=== PATIENT | male | born 1970 | race Caucasian/White ===

== ENCOUNTER → 2018-06-11 13:27 | Outpatient (CLI) | payer BC, SELFPAY ==
[2018-06-11 14:04] LABS: Basophils # 0.1 K/mm3 (0-0.2); Basophils % 0.9 % (0.1-2.0); Eosinophils # 0.3 K/mm3 (0.0-0.4); Eosinophils % 4.2 % (0.1-12.0); Hematocrit 47.4 % (42.0-52.0); Hemoglobin 15.8 g/dL (14.1-18.0); Lymphocytes # 1.8 K/mm3 (0.7-4.5); Mean Corpuscular HGB Conc 33.4 g/dL (31.8-35.4); Mean Corpuscular Hemoglobin 29.2 pg (27.0-31.2); Mean Corpuscular Volume 87.3 fl (80-94); Mean Platelet Volume 7.2 fl (7.4-10.4); Monocytes # 0.5 K/mm3 (0.1-1.0); Monocytes % 6.9 % (1.7-9.3); Neutrophils # 4.9 K/mm3 (1.8-7.8); Neutrophils % 64.9 % (37.0-80.0); Platelet Count 299 K/mm3 (142-424); Red Blood Count 5.42 M/mm3 (4.60-6.20); Red Cell Distribution Width 13.2 % (11.5-17.5); White Blood Count 7.6 K/mm3 (4.8-10.8)
[2018-06-11 16:46] LABS: Alanine Aminotransferase 71 U/L (12-78); Albumin Level 4.7 gm/dL (3.4-5.0); Albumin/Globulin Ratio 1.5 (1.1-1.8); Alkaline Phosphatase 86 U/L (46-116); Aspartate Amino Transferase 38 U/L (15-37); Blood Urea Nitrogen 17 mg/dL (7-18); Calcium 9.1 mg/dL (8.5-10.1); Carbon Dioxide 27 mmol/L (21.0-32.0); Chloride 101 mmol/L (98-107); Chol/HDL Ratio 7.6 (1-3.5); Cholesterol 348 mg/dL (140-200); Estimated Glomerular Filt Rate 79 ml/min (>60); GFR (African American) 96 ML/MIN (>60); Globulin 3.1 gm/dl (1.3-3.2); Glucose 91 mg/dL (74-106); HDL Cholesterol 46 mg/dL (27-67); LDL Cholesterol 261 mg/dL (0-130); Sodium 140 mmol/L (136-145); Thyroid Stimulating Hormone 1.43 uIU/ml (0.358-3.740); Total Protein,Serum 7.8 gm/dL (6.4-8.2); Triglycerides 203 mg/dL (30-200); VLDL Cholesterol 41 mg/dL (0-40)
[2018-06-12 09:06] LABS: Vitamin B12 703 pg/mL (232-1245)
== END ==
PROVIDERS: Visit Provider Internal Medicine Adolescent Medicine
DX: E78.5 Hyperlipidemia, unspecified (principal); R53.83 Other fatigue; R53.81 Other malaise
CPT/HCPCS: 36415; 80053; 80061; 82607; 82652; 84443; 85025

== ENCOUNTER → 2019-09-05 16:05 | Outpatient (CLI) | payer BC, SELFPAY ==
--- NOTE | 2019-09-05 16:09 | XR_ITS ---
PROCEDURE: XR CHEST 2V CLINICAL HISTORY: HISTOPLASMOSIS COMPARISON: CXR CHEST(2 VIEWS-NOT PORTABLE) from 03/06/2015 CXR CHEST(2 VIEWS-NOT PORTABLE) from 08/06/2015 FINDINGS: The cardiomediastinal silhouette and pulmonary vascularity are within normal limits. The lungs are clear without infiltrates, suspicious nodules, or pleural effusions. There is mild lower thoracic curvature convex left IMPRESSION: No acute findings. Dictated by: Marlo Pierre MD 09/05/2019 17:27 Electronically signed by Marlo Pierre MD in [place] 09/05/2019 17:27
== END ==
PROVIDERS: PCP Internal Medicine Adolescent Medicine; Visit Provider Internal Medicine Adolescent Medicine
DX: B39.9 Histoplasmosis, unspecified (principal)
CPT/HCPCS: 71046

== ENCOUNTER 2020-11-28 09:52 | Emergency (ER) | payer BC, SELFPAY ==
[2020-11-28 10:59] VITALS: PULSE 87; RESP 20; TEMP 37.1; O2SAT 97; BMI 32.1
--- NOTE | 2020-11-28 11:46 | HMH.EDUTC ---
[facility] Disposition Clinical Impression: Exposure to COVID-19 virus Acute bronchitis Qualifiers: Bronchitis organism: unspecified organism Qualified Code(s): J20.9 - Acute bronchitis, unspecified Disposition: Home, Self-Care Condition on Discharge: Good Instructions: Acute Bronchitis, DI for Acute Bronchitis, DI for COVID-19 (Suspected or Confirmed ), Preventing the Spread of Coronavirus Discharge Instructions Additional Instructions: Drink plenty of fluids. Take tylenol or ibuprofen for pain or fever. Take the medications as directed. Follow up with your regular doctor. GO TO THE ER FOR ANY WORSENING SYMPTOMS Quarantine until you know the results of your covid-19 test. If it is positive, the health department should call you and give you further instructions about your length of Quarantine and other things. Notify your school or workplace of your results and follow their instructions regarding return to work/school. The cough medication (promethazine dm) will make you drowsy, so don't drive or operate heavy machinery after taking it. Prescriptions: Albuterol Sulfate [Albuterol Sulfate Hfa] 2 puffs IH Q6HP PRN 30 Days #1 each PRN Reason: Shortness Of Breath Transmission Status: Received by [facility] Promethazine/Dextromethorphan [Promethazine-Dm Syrup] 5 ml PO Q6HP PRN #240 ml PRN Reason: Cough Transmission Status: Received by [facility] guaiFENesin [Mucinex 600mg tablet] 1 - 2 tab PO BIDP PRN #30 tab PRN Reason: Congestion Transmission Status: Received by [facility] Azithromycin [Z-Kristofer 250mg Tab*] 250 mg PO UD DOSE PK #6 tab Transmission Status: Received by [facility] Referrals: Americo Cui MD [Primary Care Provider] - Forms: Work/School Release Time of Disposition: 12:38 Medical Decision Making - Medical Records Medical records reviewed: No: I reviewed the patient's medical records. - Pedrito Inquiry Pt receiving controlled substance: No Vital Signs: 11/28/20 10:59 11/28/20 12:43 Temperature 98.7 F 0 F L Temperature Source Oral Pulse Rate 0 L Pulse Rate [Left] 87 Respiratory Rate 20 0 L Blood Pressure 0/0 L 02 Sat by Pulse Oximetry 97 - Radiology Data #1 Image(s): Chest Image Reviewed: Yes I reviewed the patient's radiology image, Yes I have reviewed radiologist's interpretation Preliminary Findings: Normal/NAD, No Infiltrates Seen PROCEDURE: XR CHEST 2V CLINICAL HISTORY: cough, congestion COMPARISON: CR CXR CHEST(2 VIEWS-NOT PORTABLE) from 03/06/2015 CR CXR CHEST(2 VIEWS-NOT PORTABLE) from 08/06/2015 DX XR CHEST 2V from 09/05/2019 FINDINGS: The cardiomediastinal silhouette and pulmonary vascularity are within normal limits. The lungs are clear without infiltrates, suspicious nodules, or pleural effusions. No acute bony abnormalities. IMPRESSION: No acute findings. Dictated by: Marlo Pierre MD 11/28/2020 12:34 Marlo Pierre MD in [place] 11/28/2020 12:34 [facility] HPI - General Stated complaint: cough, weakness, sore throat Time Seen by Provider: 11/28/20 11:47 Mode of Arrival: Ambulatory Source of Information: Patient Limitations: No Limitations Description of Symptoms (Recalled from Triage Doc. by RN): COUGH, BODY ACHES AND GALAVIZ HEENT Symptoms (Recalled from RN notes): Yes (GALAVIZ) Resp Symptoms (Recalled from RN notes): Yes (COUGH) Skin Symptoms (Recalled from RN notes): No MS Symptoms (Recalled from RN notes): No Functional Status (Recalled from RN notes): BODY ACHES - History of Present Illness Provider Complaint: He states that for the past 2 days he has had a very frequent dry cough, pleuritic chest pain, nausea, and sore throat. He has not been vaccinated against covid-19. - Related Data Home Medications Medication Instructions Recorded Confirmed diclofenac sodium 75 mg 75 mg PO BID 04/07/18 12/07/18 tablet,delayed release esomeprazole magnesium 40 mg 40 mg PO DAILY 04/07/18
--- NOTE | 2020-11-28 11:53 | XR_ITS ---
PROCEDURE: XR CHEST 2V CLINICAL HISTORY: cough, congestion COMPARISON: CR CXR CHEST(2 VIEWS-NOT PORTABLE) from 03/06/2015 CR CXR CHEST(2 VIEWS-NOT PORTABLE) from 08/06/2015 DX XR CHEST 2V from 09/05/2019 FINDINGS: The cardiomediastinal silhouette and pulmonary vascularity are within normal limits. The lungs are clear without infiltrates, suspicious nodules, or pleural effusions. No acute bony abnormalities. IMPRESSION: No acute findings. Dictated by: Marlo Pierre MD 11/28/2020 12:34 Marlo Pierre MD in [place] 11/28/2020 12:34
[2020-11-28 12:43] VITALS: BP 0/0; PULSE 0; RESP 0; TEMP -17.7; TEMP 0
--- NOTE | 2020-11-29 09:21 | PC.NURSE ---
notified pt of positive covid swab results
== END 2020-11-28 12:44 | disposition home or self-care (01) ==
PROVIDERS: Emergency Provider Nurse Practitioner Family; PCP Internal Medicine Adolescent Medicine
DX: Z20.822 Contact with and (suspected) exposure to COVID-19 (principal); J20.9 Acute bronchitis, unspecified
CPT/HCPCS: 71046; 99202; G0463; U0003

== ENCOUNTER → 2020-12-28 17:15 | Outpatient (CLI) | payer BC, SELFPAY ==
--- NOTE | 2020-12-28 17:20 | XR_ITS ---
PROCEDURE INFORMATION: Exam: XR Chest Exam date and time: 12/28/2020 5:20 PM Age: 50 years old Clinical indication: Cough; Additional info: Bronchopneumonia TECHNIQUE: Imaging protocol: XR of the chest. Views: 2 views. COMPARISON: CR XR CHEST 2V 11/28/2020 11:51 AM FINDINGS: Lungs: Hypoventilation/low lung volumes. Bilateral central peribronchial thickening. Mild bilateral infrahilar bronchovascular crowding. No focal consolidation. Pleural spaces: Unremarkable. No significant pleural effusion. No pneumothorax. Heart/Mediastinum: The cardiac silhouette is normal size. Small pericardial fat pad suggested at the left cardiophrenic angle. Bones/joints: There are spinal degenerative changes, with multilevel disc narrrowing and spondylosis. No acute appearing fracture or significant listhesis Soft tissues: No acute findings in the soft tissues. IMPRESSION: 1. Central peribronchial thickening, mild bilateral infrahilar bronchovascular crowding, suggesting bronchitis and subsegmental atelectasis. 2. No focal consolidation.
[2020-12-28 17:41] LABS: Basophils # 0.1 K/mm3 (0-0.2); Basophils % 1.1 % (0.1-2.0); Eosinophils # 0.4 K/mm3 (0.0-0.4); Eosinophils % 4.7 % (0.1-12.0); Hematocrit 44.6 % (42.0-52.0); Hemoglobin 15.6 g/dL (14.1-18.0); Lymphocytes % 25.6 % (10-50); Mean Corpuscular HGB Conc 34.9 g/dL (31.8-35.4); Mean Corpuscular Volume 88.7 fl (80-94); Mean Platelet Volume 7.9 fl (7.4-10.4); Monocytes # 0.6 K/mm3 (0.1-1.0); Monocytes % 7.6 % (1.7-9.3); Neutrophils # 4.8 K/mm3 (1.8-7.8); Neutrophils % 61.1 % (37.0-80.0); Platelet Count 307 K/mm3 (142-424); Red Blood Count 5.04 M/mm3 (4.60-6.20); Red Cell Distribution Width 13.7 % (11.5-17.5); White Blood Count 7.8 K/mm3 (4.8-10.8)
[2020-12-28 18:17] LABS: Chloride 103 mmol/L (98-107); Potassium 4.3 mmoL/L (3.5-5.1); Sodium 141 mmol/L (136-145)
[2020-12-28 18:20] LABS: Anion Gap 13.3 mEq/L (5-15); Blood Urea Nitrogen 12 mg/dl (9-20); Carbon Dioxide 29 mmol/L (22.0-30.0); Estimated Glomerular Filt Rate 89 ml/min (>60); GFR (African American) 108 ML/MIN (>60)
[2020-12-28 18:21] LABS: Calcium 8.8 mg/dl (8.4-10.2); Glucose 168 mg/dl (74-100)
== END ==
PROVIDERS: Visit Provider Internal Medicine Adolescent Medicine
DX: J18.0 Bronchopneumonia, unspecified organism (principal)
CPT/HCPCS: 36415; 71046; 80048; 85025

== ENCOUNTER → 2021-02-28 17:01 | Outpatient (CLI) | payer BC, SELFPAY ==
[2021-02-28 18:22] LABS: Basophils # 0.1 K/mm3 (0-0.2); Basophils % 1.8 % (0.1-2.0); Eosinophils # 0.4 K/mm3 (0.0-0.4); Eosinophils % 4.9 % (0.1-12.0); Hematocrit 42.9 % (42.0-52.0); Lymphocytes # 2.2 K/mm3 (0.7-4.5); Lymphocytes % 27.3 % (10-50); Mean Corpuscular HGB Conc 34.9 g/dL (31.8-35.4); Mean Corpuscular Hemoglobin 30.5 pg (27.0-31.2); Mean Corpuscular Volume 87.3 fl (80-94); Mean Platelet Volume 8.2 fl (7.4-10.4); Monocytes # 0.7 K/mm3 (0.1-1.0); Monocytes % 9.2 % (1.7-9.3); Neutrophils # 4.5 K/mm3 (1.8-7.8); Neutrophils % 56.7 % (37.0-80.0); Platelet Count 317 K/mm3 (142-424); Red Blood Count 4.91 M/mm3 (4.60-6.20); Red Cell Distribution Width 13.8 % (11.5-17.5); White Blood Count 7.9 K/mm3 (4.8-10.8)
[2021-02-28 18:35] LABS: Hemoglobin A1C 5.6 % (4.0-6.0)
[2021-02-28 19:04] LABS: Alanine Aminotransferase 348 U/L (12-78); Albumin Level 4.6 g/dl (3.5-5.0); Albumin/Globulin Ratio 1.8 (1.1-1.8); Alkaline Phosphatase 92 U/L (38-126); Anion Gap 10.1 mEq/L (5-15); Aspartate Amino Transferase 251 U/L (17-59); Bilirubin,Total 0.7 mg/dl (0.2-1.3); Blood Urea Nitrogen 15 mg/dl (9-20); Calcium 9.3 mg/dl (8.4-10.2); Carbon Dioxide 32 mmol/L (22.0-30.0); Chloride 100 mmol/L (98-107); Chol/HDL Ratio 6.3 (1-3.5); Cholesterol 304 mg/dl (140-200); Estimated Glomerular Filt Rate 89 ml/min (>60); GFR (African American) 107 ML/MIN (>60); Globulin 2.5 g/dL (1.3-3.2); Glucose 81 mg/dl (74-100); HDL Cholesterol 48 mg/dl (40-60); Potassium 4.1 mmoL/L (3.5-5.1); Sodium 138 mmol/L (136-145); Total Protein,Serum 7.1 g/dl (6.3-8.2); Triglycerides 311 mg/dl (30-150); VLDL Cholesterol 62 mg/dL (0-40)
[2021-02-28 19:15] LABS: Direct LDL Cholesterol 203.15 mg/dL (100-129)
== END ==
PROVIDERS: Visit Provider Internal Medicine Adolescent Medicine
DX: R06.00 Dyspnea, unspecified (principal); E78.5 Hyperlipidemia, unspecified
CPT/HCPCS: 36415; 80053; 80061; 83036; 85025

== ENCOUNTER → 2021-03-07 07:17 | Outpatient (CLI) | payer BC, SELFPAY ==
--- NOTE | 2021-03-07 | CA_ITS ---
APPROVED REPORT Exam: Exercise Treadmill Technologist: Leslie Hinojosa, Ht: 5 ft 10 in Wt: 235 lbs BSA: 2.24 m2 HR: 72 bpm BP: 130/76 mmHg Rhythm: NSR, RIGHTWARD AXIS, ST-T ABNS INFERIORLY Medical History Medical History: Hyperlipidemia Medications: Nexium,,,,, VeLAFAXINE,,,,, Allergies: PCN, PREDNISONE Cardiac Risk Factors: Hyperlipidemia Stress Test Details Test: Prem, Exercise stress testing was performed using a Prem protocol. HR Resting HR: 79 bpm Max Heart Rate (APMHR): 168.535744 bpm Max HR Achieved: 169 bpm Target HR (85% APMHR): 142.434581 bpm % of APMHR: 100.60 Recovery HR: 98 bpm BP Resting BP: 130/76 mmHg Max BP: 178/92 mmHg Recovery BP: 137.0/82.0 mmHg ECG Resting ECG: NSR, RIGHTWARD AXIS, ST-T ABNS INFERIORLY Clinical Exercise duration: 09:00 min Highest Stage Achieved: Exercise capacity: 10.1 METs Stress ECG Conclusion MAX HR: 169. % OF PM: 101%. MAX BP 178/92. METS 10.1. TEST STOPPED DUE TO SOA, FATIGUE. NO CP. RARE PAC. 0.5-1MM OF HORIZONTAL ST DEPRSSION IN LEAD II 0.5MM UPSLOPING ST DEPRESSION IN V6. EXAGGERATION OF BASELINE ABNS IN LEADS III, AVF. EQUIVOCAL EKG CHANGES. GXT ONLY (NO IMAGING) Test Summary RECOVERY 03:00 0.0 0.0 106 . 163/ 82 . . REST . . . . . . . Sitting REST 04:11 0.0 0.0 79 . 130/ 76 . . Stage 1 01:00 10.0 1.7 105 . . . . Stage 1 02:00 10.0 1.7 117 . . . . Stage 1 03:00 10.0 1.7 117 . 152/ 90 . . Stage 2 01:00 12.0 2.5 126 . . . . Stage 2 02:00 12.0 2.5 129 . . . . Stage 2 03:00 12.0 2.5 132 . 178/ 92 . . Stage 3 01:00 14.0 3.4 151 . . . . Stage 3 02:00 14.0 3.4 160 . . . . Stage 3 03:00 14.0 3.4 169 . . . Stop exercise at 09:00 RECOVERY 01:00 0.0 0.0 139 . . . . RECOVERY 02:00 0.0 0.0 115 . 178/ 91 . . RECOVERY 03:00 0.0 0.0 106 . 163/ 82 . . RECOVERY 04:00 0.0 0.0 98 . 163/ 82 . . RECOVERY 05:00 0.0 0.0 99 . 137/ 82 . . RECOVERY 05:16 0.0 0.0 99 . 137/ 82 . . Electronically signed by : Americo Cui MD 03/09/2021 08:41:10
== END ==
PROVIDERS: PCP Internal Medicine Adolescent Medicine; Visit Provider Internal Medicine Adolescent Medicine
DX: R06.09 Other forms of dyspnea (principal)
CPT/HCPCS: 93017

== ENCOUNTER → 2021-03-08 07:46 | Outpatient (CLI) | payer BC, SELFPAY ==
--- NOTE | 2021-03-08 07:49 | US_ITS ---
PROCEDURE: US LIVER CLINICAL INDICATION: LIVER ENZYME ELEVATION COMPARISON: No exams were available for comparison FINDINGS: PANCREAS: There is poor visualization of the pancreas. LIVER: Diffuse increased echogenicity of the liver with poor through transmission of sound consistent with hepatic steatosis. No focal liver lesion demonstrated. There is appropriate direction of blood flow within non dilated portal vein. RIGHT KIDNEY: Unremarkable. Normal size and echogenicity. No hydronephrosis GALLBLADDER: No gallstones, gallbladder wall thickening, pericholecystic fluid, or biliary dilatation. IMPRESSION: Fatty liver. Poor visualization of the pancreas Dictated by: Marlo Pierre MD 03/08/2021 16:49 Marlo Pierre MD in [place] 03/08/2021 16:49
== END ==
LOC: RAD 07:47
PROVIDERS: PCP Internal Medicine Adolescent Medicine; Visit Provider Internal Medicine Adolescent Medicine
DX: R74.8 Abnormal levels of other serum enzymes (principal)
CPT/HCPCS: 76705

== ENCOUNTER → 2021-04-13 10:43 | Outpatient (CLI) | payer BC, SELFPAY | PROVIDERS: Visit Provider Surgery | DX: Z01.812 Encounter for preprocedural laboratory examination (principal); Z11.52 Encounter for screening for COVID-19; Z13.810 Encounter for screening for upper gastrointestinal disorder; Z12.11 Encounter for screening for malignant neoplasm of colon | CPT/HCPCS: C9803; U0003; U0005 ==

== ENCOUNTER 2021-04-16 07:29 | Day surgery (SDC) | payer BC, SELFPAY ==
[2021-04-11 12:36] VITALS: BMI 32.3
[2021-04-16] VITALS (7 sets, daily range): BP systolic 112–124; BP diastolic 69–79; PULSE 65–84; RESP 16–20; TEMP 36.2; O2SAT 92–99
--- NOTE | 2021-04-16 07:59 | HMH.ANESCL ---
[facility] Anesthesia Checklist - Patient Identification Patient Identification: Arm Band - Structural Data Admitted From: Home Planned Operative Procedure/s: EGD/ Colon Consent for Planned Operative Procedure(s) Verified: Yes - NPO Status Verified Time NPO: 00:00 - Additional verifications Anesthesia Reactions: No - Airway Assessment C-Spine Mobility Assessed: Yes TMJ Mobility Assessed: Yes Dentition: Good Dentition - Neurological Assessment Level of Consciousness: Awake Hx Seizures: No Numbness or tingling in extremities: No - Anesthesia Plan Anesthesia Risk discussed: Yes Anesthesia Plan: Verified ASA Class: II Anesthesia Type: MAC [facility] History I have reviewed the patient's past medical history: Yes Medical History: Reports:: Anxiety Denies:: Cancer, Diabetes Mellitus Type 1, Diabetes Mellitus Type 2, Internal Pacemaker, Lung Disease, MRSA, Seizures *Have you ever received a pneumonia vaccine?: No *Have you received a flu vaccine this season?: No Anesthesia experience/problems:: None Laterality Cases: Bilateral: Myringotomy (Ear Tubes) Other Surgeries: Yes: Colonoscopy, EGD. No: Pacemaker Amputation: No Fractures: No - *Social History Last grade of school completed: High school graduate Smoking Status: Never smoker Alcohol Intake: current Alcohol Intake Frequency:: a few times a month Substance Use Type: denies use *Occupational Status:: employed Housing: house *Travel in the last 8 weeks: None - Psychiatric History Pschychiatric History:: Reports:: Anxiety Family Hx:: No significant family history
--- NOTE | 2021-04-16 08:44 | HMH.SCOPE ---
- Procedure: Date: 04/16/21 Patient Date of :: 1970 Procedure Performed:: Esophagogastroduodenoscopy with biopsy Colonoscopy with polypectomy by means other than snare Indications:: Intestinal metaplasia of gastric mucosa History of colon polyps Performing Provider:: Onel Kidd MD Referring Provider:: . Sedation:: Monitored anesthesia care Procedure:: After informed consent was obtained the patient was taken to the endoscopy suite. Sedation ensued after the patient was transferred to the left lateral decubitus position. Pulse, blood pressure, and oxygen saturation were monitored throughout the procedure. The endoscope was advanced beyond the duodenal bulb. Retroflexion within the gastric lumen was accomplished. The gastroscope was carefully removed. Digital rectal exam revealed no significant abnormality. The colonoscope was placed in position. The entire colon was evaluated. The colonoscope was carefully removed and the patient was transferred to recovery in stable condition. Please see findings and specimens below for detail. Findings:: Minimal inflammatory changes throughout gastric lumen Hemorrhoidal cushions/tags Bowel preparation moderate Fairly severe lack of relaxation Small polyp at 65 cm Specimens:: Antral biopsy Small colon polyp at 65 cm Recommendations:: Continue proton pump inhibition Timing of repeat colonoscopy is pending pathology but will likely be around 3 years secondary to limitations in visualization and history of polyps. Complications:: No immediate Estimated blood obtained (mL): 1
== END 2021-04-16 09:25 | disposition home or self-care (01) ==
LOC: OUTP 07:30
PROVIDERS: PCP Internal Medicine Adolescent Medicine; Visit Provider Surgery
PROC: 0DJD8ZZ Inspection of Lower Intestinal Tract, Via Natural or Artificial Opening Endoscopic (ICD-10-PCS; CPT 45380; principal; 2021-04-16 08:30)
DX: Z12.11 Encounter for screening for malignant neoplasm of colon (principal); Z86.010 Personal history of colon polyps; Z87.19 Personal history of other diseases of the digestive system; K63.5 Polyp of colon; K64.0 First degree hemorrhoids; K63.89 Other specified diseases of intestine
CPT/HCPCS: 45380; 43239

== ENCOUNTER → 2022-07-16 15:32 | Outpatient (POV) | payer BC, SELFPAY | PROVIDERS: Visit Provider Specialist/Technologist | DX: Z00.00 Encounter for general adult medical examination without abnormal findings (principal) ==

== ENCOUNTER 2023-05-23 11:37 | Emergency (ER) | payer BC, SELFPAY ==
[2023-05-23 13:15] VITALS: BP 134/70; PULSE 82; RESP 20; TEMP 36.8; O2SAT 98; BMI 31.4
[2023-05-23 13:35] LABS: UTC Strep Screen (Rapid) Negative (Negative)
[2023-05-23 13:36] VITALS: BP 134/70; PULSE 82; RESP 20; TEMP 36.8; O2SAT 98
[2023-05-23 13:36] LABS: UTC Influenza A Antigen Negative (Negative); UTC Influenza B Antigen Negative (Negative)
--- NOTE | 2023-05-23 13:42 | ED_ITS ---
Discharge Plan Disposition Patient Disposition: Home, Self-Care Condition: Good Prescriptions Prescriptions: No Action esomeprazole magnesium [Nexium] 40 mg capsule,delayed release(DR/EC) 40 mg PO DAILY escitalopram oxalate 10 mg tablet 10 mg PO DAILY cholecalciferol (vitamin D3) 5,000 unit tablet 5,000 unit PO DAILY celecoxib 200 mg capsule 200 mg PO DAILY atorvastatin 20 MG tablet 20 mg PO HS niacin 50 MG tablet 50 mg PO DAILY aspirin 81 MG tablet,chewable 81 mg PO DAILY Referrals Follow up/Referrals: Americo Cui MD [Primary Care Provider] - See instructions Activity Restrictions/Add. Instructions Additional Instructions/Restrictions: covid swab was sent to lab, call tomorrow for results. self isolate until test results are known to be negative No sign of a bacterial infection. Likely viral. Viruses can take 7-14 days to run their course. Nasal saline and bulb syringe or nose Effie to remove nasal drainage to help with nasal congestion. Hard to eat, drink, sleep with nasal congestion so important to keep this cleaned out. Monitor temp. Tylenol or Motrin as needed for pain or fever Encourage fluids, water, Gatorade, Powerade, Pedialyte if /toddler/child Warm salt water gargles Warm fluids Sore throat lozenges Sleep elevated Humidifier/vaporizer Follow-up immediately for new or worsening symptoms or no noticeable improvement over the next 48-72 hours. Clinical Impressions Clinical Impression: Upper respiratory infection Qualifiers: URI type: unspecified viral URI Qualified Code(s): J06.9 - Acute upper respiratory infection, unspecified Instructions Patient Instructions: DI for Viral Upper Respiratory Infection -- Adult Discharge ED Provider: Denia ([facility])Jean Marie [facility] HPI General Stated complaint: cough, sore throat, sinus pressure, weakness Mode of Arrival: Ambulatory Source of Information: Patient Limitations: No Limitations Time Seen by Provider: 05/23/23 13:42 Description of Symptoms (Recalled from Triage Doc. by RN): PATIENT C/O COUGH, SORE THROAT, FATIGUE, HOT FLASHES, AND CONGESTION THAT STARTED THURSDAY NIGHT. HEENT Symptoms (Recalled from RN notes): Yes Resp Symptoms (Recalled from RN notes): Yes Skin Symptoms (Recalled from RN notes): No MS Symptoms (Recalled from RN notes): No Functional Status (Recalled from RN notes): WNL History of Present Illness Provider Complaint: 53 YR OLD MALE PRESENTS FOR C/O COUGH, SORE THROAT, FATIGUE, HOT FLASHES, AND CONGESTION THAT STARTED THURSDAY NIGHT. Related Data Home Medications Medication Instructions Recorded Confirmed esomeprazole magnesium 40 mg 40 mg PO DAILY GERD 04/07/18 07/29/22 capsule,delayed release (Nexium) cholecalciferol (vitamin D3) 125 5,000 unit PO DAILY Supplement 12/07/18 07/29/22 mcg (5,000 unit) tablet escitalopram oxalate 10 mg tablet 10 mg PO DAILY Depression 12/07/18 07/29/22 aspirin 81 mg chewable tablet 81 mg PO DAILY HEART HEALTH 04/11/21 07/29/22 atorvastatin 20 mg tablet 20 mg PO HS Cholesterol 04/11/21 07/29/22 niacin 50 mg tablet 50 mg PO DAILY Pain 04/11/21 07/29/22 celecoxib 200 mg capsule 200 mg PO DAILY 07/01/22 07/29/22 Allergies Allergy/AdvReac Type Severity Reaction Status Date / Time Penicillins [PENICILLINS] Allergy Unknown Verified 07/29/22 16:14 prednisone [PREDNISONE] Allergy Unknown Verified 07/29/22 16:14 Worker's Comp Is this a Worker's Comp case?: No [facility] Disclaimer: The information contained in this section may have been updated after the patient was seen, as this information can be updated by other users. Medical History , RAD TECH) Eardrum rupture, right Hearing loss in right ear Retracted tympanic membrane Serous otitis media Social History , RAD TECH) Smoking Status: Never smoker alcohol intake: current substance use type: denies use current occupational status: employed Travel in the last 8 weeks: None housing: house current occupational exposures/hazards: No caffeine: Yes ROS Obtained: Yes All systems reviewed & no additional complaints except as documented Constitutional Constitutional: Reports system reviewed and no additional complaints, except as documented, Reports as per HPI, Reports fever(s) and Reports headache(s) Eyes Eyes: Reports system reviewed and no additional complaints, except as documented ENT Ears, Nose, Mouth, and Throat: Reports system reviewed and no additional complaints, except as documented, Reports as per HPI, Reports facial pain, Reports headache(s), Reports nasal congestion, Reports nasal discharge, Reports sinus pain, Reports sinus pressure and Reports sore throat Cardiovascular Cardiovascular: Reports system reviewed and no additional complaints, except as documented Respiratory Respiratory: Reports system reviewed and no additional complaints, except as documented, Reports as per HPI, Reports chest congestion and Reports cough Gastrointestinal Gastrointestingal: Reports system reviewed and no additional complaints, except as documented Musculoskeletal Musculoskeletal: Reports system reviewed and no additional complaints, except as documented Integumentary/Breasts Skin/Breast: Reports system reviewed and no additional complaints, except as documented Neurologic Neurologic: Reports system reviewed and no additional complaints, except as documented and Reports headache(s) Endocrine Endocrine: Reports system reviewed and no additional complaints, except as documented Allergic/Immunologic Allergic/Immunologic: Reports system reviewed and no additional complaints, except as documented Physical Exam General General appearance: alert and in no apparent distress Head Head exam: atraumatic Eye Eye exam: Present normal appearance and PERRL ENT ENT exam: Present normal oropharynx, mucous membranes moist and TM's normal bilaterally Expanded ENT Exam Nose exam: Present sinus tenderness Respiratory Respiratory exam: Present normal lung sounds bilaterally Cardiovascular Cardiovascular exam: Present regular rate and normal rhythm Neurological Exam Neurological exam: Present alert and oriented X3 Skin Skin exam: Present warm and intact Medical Decision Making Medical Records Medical records reviewed: Yes I reviewed the patient's medical records. Pedrito Inquiry Pt receiving controlled substance: No Pedrito was queried for this patient: No Vital Signs: 05/23/23 13:15 05/23/23 13:36 Temperature 98.3 F 98.3 F Temperature Source Oral Pulse Rate 82 Pulse Rate [Right Brachial] 82 Respiratory Rate 20 20 Blood Pressure 134/70 Blood Pressure [Right Arm] 134/70 Blood Pressure Mean [Right Arm] 91 Blood Pressure Source [Right Arm] Automatic Cuff Blood Pressure Position [Right Arm] Sitting 02 Sat by Pulse Oximetry 98 Oxygen Delivery Method Room Air Lab Data Lab results reviewed: Yes I reviewed the patient's lab results. Lab Results 05/23/23 13:30: Influenza Type A Ag Negative, Influenza Type B Ag Negative, Strep Scn Rapid Clinic Negative Orders (Tests/Meds): ORDERS Category Date Time Status Strep Screen Confirmation Stat Micro 05/23/23 13:30 Received
[2023-05-23] MEDS: DEXAMETHASONE 4MG/ML 1ML VIAL 4 MG IM (13:45)
[2023-05-23 14:04] LABS: Coronavirus 19, PCR Not Detected (NotDetected); Influenza A, PCR Not Detected (NotDetected); Influenza B, PCR Not Detected (NotDetected)
== END 2023-05-23 14:02 | disposition home or self-care (01) ==
PROVIDERS: Emergency Provider Nurse Practitioner Family; PCP Internal Medicine Adolescent Medicine
DX: R51.9 Headache, unspecified (principal); R05.9 Cough, unspecified; R07.0 Pain in throat; R09.81 Nasal congestion; J06.9 Acute upper respiratory infection, unspecified; B34.9 Viral infection, unspecified
CPT/HCPCS: 87636; 87804; 87880; 96372; 99212; 99214; G0463

== ENCOUNTER 2023-06-23 15:35 | Outpatient (POV) | payer BC, SELFPAY | END 2023-06-23 23:59 | disposition home or self-care (01) | LOC: SC 15:36 | PROVIDERS: PCP Internal Medicine Adolescent Medicine; Visit Provider Dermatology | DX: Z00.00 Encounter for general adult medical examination without abnormal findings (principal) ==

== ENCOUNTER 2023-08-14 16:54 | Outpatient (CLI) | payer BC, SELFPAY ==
--- NOTE | 2023-08-14 16:58 | XR_ITS ---
PROCEDURE INFORMATION: Exam: XR Chest Exam date and time: 08/14/2023 5:03 PM Age: 53 years old Clinical indication: Patient HX: Subacute cough. TECHNIQUE: Imaging protocol: Radiologic exam of the chest. Views: 2 views. COMPARISON: CR XR CHEST 2V 12/28/2020 5:22 PM FINDINGS: Lungs: Unremarkable. No consolidation. Pleural spaces: Unremarkable. No pleural effusion. No pneumothorax. Heart/Mediastinum: Unremarkable. No cardiomegaly. Bones/joints: Unremarkable. IMPRESSION: No acute findings.
== END 2023-08-14 23:59 | disposition home or self-care (01) ==
LOC: RAD 16:55
PROVIDERS: PCP Internal Medicine Adolescent Medicine; Visit Provider Internal Medicine Adolescent Medicine
DX: R05.2 Subacute cough (principal)
CPT/HCPCS: 71046

== ENCOUNTER 2024-07-28 06:18 | Day surgery (SDC) | payer BC, SELFPAY ==
[2024-07-26 16:38] VITALS: BMI 31.4
[2024-07-28] MEDS: LACTATED RINGERS 1000ML 1,000 ML 50 ML IV (06:39)
[2024-07-28 06:44] VITALS: BP 145/83; PULSE 76; RESP 18; TEMP 36.4; O2SAT 96
--- NOTE | 2024-07-28 07:08 | EXP.ANES.CKL ---
[facility] Disclaimer: The information contained in this section may have been updated after the patient was seen, as this information can be updated by other users. Medical History Hyperlipidemia Hypertension GERD (gastroesophageal reflux disease) Anxiety Retracted tympanic membrane Serous otitis media Hearing loss in right ear Eardrum rupture, right Surgical History (Updated 07/28/24 @ 06:44 by Matty Mccann RN) Hx of myringotomy Family History (Updated 07/28/24 @ 06:44 by Matty Mccann RN) Other Family history of cancer Social History Smoking Status: Never smoker alcohol intake: current alcohol intake frequency: a few times a month substance use type: denies use current occupational status: employed Travel in the last 8 weeks?: None housing: house current occupational exposures/hazards: No caffeine: Yes Have you lived/traveled outside US in past 30 days?: No Contact w/someone who lives/traveled outside US past 30 days?: No Exposure to someone with infectious disease in past 14 days?: No Do you have a fever (greater than 100.4 F or 38 C)?: No Have you tested positive for COVID-19?: No Exposed to someone with COVID-19 in past 14 days?: No Do you have a sore throat?: No Do you have a cough?: No Do you have any weakness?: No Are you experiencing any nausea/vomitting?: No Do you have any diarrhea?: No Are you experiencing any unusual bleeding?: No Do you have any muscle aches/pain?: No Do you have any abdominal pain?: No Are you experiencing loss of taste or smell?: No [facility] Anesthesia Checklist Patient Identification Patient Identification: Arm Band and Verbal (Name & ) Structural Data Admitted From: Home Planned Operative Procedure/s: EGD and colonoscopy Verified Documents: Surgical Consent NPO Status Verified Time NPO: 00:00 Chart Verification Results Verified: None Additional verifications Anesthesia Reactions: No Airway Assessment Mallampati Score:: Class II C-Spine Mobility Assessed: Yes TMJ Mobility Assessed: No Dentition: Good Dentition Neurological Assessment Level of Consciousness: Awake, Alert and Appropriate Hx Seizures: No Numbness or tingling in extremities: No Anesthesia Plan Anesthesia Risk discussed: Yes Anesthesia Plan: Verified ASA Class: II Anesthesia Type: MAC
[2024-07-28 07:33] VITALS: O2SAT 96
--- NOTE | 2024-07-28 07:36 | EXP.HP ---
History of Present Illness *Admission Date: 07/28/24 *Reason for visit:: Personal history of adenomatous colon polyps *History of present illness: Mr. Velasco is a 54-year-old gentleman who is here for follow-up surveillance EGD and colonoscopy due to a personal history of adenomatous colon polyps. The patient did have a colonoscopy in December 2018 (Onel Kidd M.D.) and had 3 polyps that were all adenomatous.. The examination is deemed medically necessary for surveillance colonoscopy. The patient has been seen, interviewed and examined prior to the procedure by both myself and the anesthesia provider. [facility] Disclaimer: The information contained in this section may have been updated after the patient was seen, as this information can be updated by other users. Medical History (Updated 07/28/24 @ 07:41 by Varun Judge II, MD) Hyperlipidemia Hypertension GERD (gastroesophageal reflux disease) Anxiety Retracted tympanic membrane Serous otitis media Hearing loss in right ear Eardrum rupture, right Surgical History (Updated 07/28/24 @ 06:44 by Matty Mccann RN) Hx of myringotomy Family History (Updated 07/28/24 @ 06:44 by Matty Mccann RN) Other Family history of cancer Social History Smoking Status: Never smoker alcohol intake: current alcohol intake frequency: a few times a month substance use type: denies use current occupational status: employed Travel in the last 8 weeks?: None housing: house current occupational exposures/hazards: No caffeine: Yes Have you lived/traveled outside US in past 30 days?: No Contact w/someone who lives/traveled outside US past 30 days?: No Exposure to someone with infectious disease in past 14 days?: No Do you have a fever (greater than 100.4 F or 38 C)?: No Have you tested positive for COVID-19?: No Exposed to someone with COVID-19 in past 14 days?: No Do you have a sore throat?: No Do you have a cough?: No Do you have any weakness?: No Are you experiencing any nausea/vomitting?: No Do you have any diarrhea?: No Are you experiencing any unusual bleeding?: No Do you have any muscle aches/pain?: No Do you have any abdominal pain?: No Are you experiencing loss of taste or smell?: No Other Medical History Have you received the Flu Vaccine for this season: No Have you received the Pneumonia Vaccine: No Review of Systems Review of Systems Review of systems (narrative): Negative *Cardiovascular Comments: Negative *Gastrointestinal Comments: Negative *Genitourinary Comments: Negative *Musculoskeletal Comments: Negative *Neurologic Comments: Negative Meds Home Medications and Allergies Home Medications ?Medication ?Instructions ?Recorded ?Confirmed ?Type esomeprazole magnesium 40 mg 40 mg PO DAILY GERD 04/07/18 07/28/24 History capsule,delayed release (Nexium) cholecalciferol (vitamin D3) 125 5,000 unit PO DAILY Supplement 12/07/18 07/28/24 History mcg (5,000 unit) tablet aspirin 81 mg chewable tablet 81 mg PO DAILY HEART HEALTH 04/11/21 07/28/24 History atorvastatin 20 mg tablet 20 mg PO HS Cholesterol 04/11/21 07/28/24 History buspirone 10 mg tablet 10 mg PO NEEDED PRN Anxiety 07/26/24 07/28/24 History levocetirizine 5 mg tablet 5 mg PO DAILY 07/26/24 07/28/24 History New Prescriptions to Start Prescriptions: Allergies Allergy/AdvReac Type Severity Reaction Status Date / Time Penicillins (PENICILLINS) Allergy Unknown Other Verified 07/28/24 06:42 prednisone (PREDNISONE) Allergy Unknown Other Verified 07/28/24 06:42 Exam Data for Last 24 hours Vital signs and Labs for Last 24 Hours: Temp Pulse Resp BP Pulse Ox O2 Del Method O2 Flow Rate 97.6 F 76 18 145/83 H 96 Nasal Cannula 5 07/28/24 06:44 07/28/24 06:44 07/28/24 06:44 07/28/24 06:44 07/28/24 06:44 07/28/24 07:33 07/28/24 07:33 I & O for Last 24 hours: Intake & Output 07/25/24 07/26/24 07/27/24 07/28/24 23:59 23:59 23:59 23:59 Weight 225 lb *Routine HEENT Exam Head: Present normocephalic Eye: Present EOMI and PERRL ENT: Present mucous membranes moist *Routine Neck Exam Neck: Present supple *Routine Respiratory Exam Respiratory: Present CTA bilaterally *Routine Cardiovascular Exam Cardiovascular: Present RRR *Routine Abdominal Exam Abdominal: Present soft and normoactive bowel sounds; Absent tenderness *Routine Rectal Exam Rectal:: deferred *Routine Genitalia Exam Genitalia:: deferred *Routine Extremities Exam Extremities: Absent cyanosis, clubbing or edema *Routine Skin Exam Skin: Present warm; Absent rash *Routine Neurological Exam Neurological: Present alert and oriented X3 Assessment and Plan *Assessment and plan (1) Personal history of adenomatous and serrated colon polyps: Status: Acute Category: Medical Code(s): Z86.0101 - Personal history of adenomatous and serrated colon polyps (2) GERD (gastroesophageal reflux disease): Status: Acute Category: Medical Code(s): K21.9 - Gastro-esophageal reflux disease without esophagitis Plan A/P: 1. Personal history of adenomatous colon polyps for colonoscopy and GERD for upper endoscopy is the preprocedural diagnosis. The patient will be anesthetized/sedated using MAC sedation. The patient has been seen and examined. Cardiac and lung assessment prior to the examination is stable. Proceed with planned EGD and colonoscopy.
--- NOTE | 2024-07-28 07:42 | P.PCN_ITS ---
[facility] Procedure Note Date: 07/28/24 Time: 07:48 Procedure Note:: Upper Endoscopy Procedure Report: Esophagogastroduodenoscopy with cold biopsies and TTS balloon dilation Endoscopost: Varun Judge II, MD Referring Physician: Americo Cui M.D. Date of Procedure: July 28, 2024 Equipment: Olympus GIF 190 standard upper endoscope Sedation: MAC sedation Indications: Mr. Velasco is a 54-year-old gentleman with chronic GERD. He is on Nexium. He reports no abdominal pain, dyspepsia, nausea or early satiety. He does get some bloating and gassiness. He reports no dysphagia but does state that he sometimes gets choked. He has had prior EGDs with Dr. Onel Kidd M.D. in March 2021 and December 2018. Procedure: Prior to the procedure, a history and physical exam was performed, and patient's medications and allergies were reviewed. The risks, benefits and alternatives of the sedation and procedure were discussed with the patient. All questions were answered and informed consent was obtained. The patient was brought to the procedure room. Patient identification and proposed procedure were verified by the physician and the nurse. The patient was placed in a left lateral decubitus position and the scope was passed under direct vision. Throughout the procedure, the patient's blood pressure, pulse, and oxygen saturations were monitored continuously. The upper GI endoscopy was accomplished without difficulty. The patient tolerated the procedure well. Findings: The scope was passed directly into the upper esophagus and advanced to the third portion of the duodenum. The post bulbar duodenum, ampulla and duodenal bulb were normal with normal mucosa and conniventes. The scope was withdrawn through a normal duodenal bulb and pylorus into the stomach. There was very mild antral reactive gastropathy and very mild chronic gastritis. Biopsies were taken along the lesser curvature and antrum to rule out H. pylori. Upon retroflexion there was a very small sliding 1 to 2 cm hiatal hernia. The scope was then withdrawn into the esophagus. There was a serrated Z-line and biopsies were taken at the GE junction. There were tertiary contractions and evidence of mild esophageal dysmotility. The entire esophagus was dilated to 60 Guyanese/20 mm with a TTS hydrostatic balloon. There was minimal resistance. The remainder of the esophageal mucosa was normal. Impression: 1. Nonerosive GERD with very small sliding hiatal hernia 2. Very mild antral gastropathy and mild proximal chronic gastritis Plan: I will follow-up the biopsies. The patient does have uncomplicated GERD and I do not feel that he requires surveillance endoscopy. We will discuss whether long-term PPI therapy is appropriate for control of his GERD and he does state that Nexium controls his reflux well.
--- NOTE | 2024-07-28 07:51 | P.PCN_ITS ---
[facility] Procedure Note Date: 07/28/24 Time: 08:10 Procedure Note:: Colonoscopy Procedure Report: Colonoscopy Endoscopist: Varun Judge II, MD Referring physician: Americo Cui M.D. Date of Procedure: July 28, 2024 Equipment: Olympus 190 variable stiffness pediatric colonoscope Sedation: MAC sedation Indication: Mr. Velasco is a 54-year-old gentleman who is here for follow-up surveillance colonoscopy secondary to a personal history of adenomatous colon polyps. The patient did undergo colonoscopy (Onel Kidd M.D.) in December 2018 and had 3 polyps (small tubular adenomas x 2 and larger serrated polyp x 1) which were removed. His next colonoscopy in March 2021 revealed a small benign mucosal prolapse polyp) which was removed. He reports no abdominal pain, weight loss, change in his bowel habits or rectal bleeding. He reports no family history of colon cancer. Procedure: Prior to the procedure, a history and physical exam was performed, and patient's medications and allergies were reviewed. The risks, benefits and alternatives of the sedation and procedure were discussed with the patient. All questions were answered and informed consent was obtained. The patient was brought to the procedure room. Patient identification and proposed procedure were verified by the physician and the nurse. The patient was placed in a left lateral decubitus position and the scope was passed under direct vision. Throughout the procedure, the patient's blood pressure, pulse, and oxygen saturations were monitored continuously. The colonoscopy was accomplished without difficulty. The patient tolerated the procedure well. Findings: On digital rectal examination there was normal rectal tone. There were no external hemorrhoids. The prostate was 2+, smooth, soft, symmetric without nodules. The colonoscope was introduced through the anal canal to the rectum and advanced to the cecum. The ileocecal valve and appendiceal orifice were identified. The scope was advanced a short distance into the ileum which appeared grossly normal. The scope was then withdrawn into the colon. The cecum, ascending, transverse, descending, sigmoid and rectum were grossly normal. There were no mucosal abnormalities identified. Upon retroflexion within the rectum there were grade 1-2 internal hemorrhoids. The preparation was excellent throughout with Hooven Preparation Score of 9. The cecal time was 10 minutes. Impression: 1. Normal colonoscopy with intubation of the terminal ileum 2. Grade 1-2 internal hemorrhoids Plan: Based upon his prior history of adenomatous colon polyps (both serrated adenoma and tubular adenomas), I will recommend repeat surveillance colonoscopy again in 5 to 7 years. I would encourage psyllium bulking fiber supplementation on a long-term daily maintenance basis.
[2024-07-28 08:10] VITALS: BP 90/61; PULSE 75; RESP 17; TEMP 36.2; O2SAT 96
[2024-07-28 08:20] VITALS: BP 100/64; PULSE 73; RESP 17; O2SAT 96
[2024-07-28 08:30] VITALS: BP 118/71; PULSE 76; RESP 17; O2SAT 96
[2024-07-28 08:40] VITALS: BP 116/71; PULSE 96; RESP 17; O2SAT 94
== END 2024-07-28 08:49 | disposition home or self-care (01) ==
PROVIDERS: PCP Internal Medicine Adolescent Medicine; Visit Provider Internal Medicine Gastroenterology
PROC: 0DJ08ZZ Inspection of Upper Intestinal Tract, Via Natural or Artificial Opening Endoscopic (ICD-10-PCS; CPT 45378; principal; 2024-07-28 08:00)
DX: Z12.11 Encounter for screening for malignant neoplasm of colon (principal); Z86.0101 Personal history of adenomatous and serrated colon polyps; K21.9 Gastro-esophageal reflux disease without esophagitis; K22.4 Dyskinesia of esophagus; K31.9 Disease of stomach and duodenum, unspecified; K29.70 Gastritis, unspecified, without bleeding; K44.9 Diaphragmatic hernia without obstruction or gangrene; K64.8 Other hemorrhoids
CPT/HCPCS: 43239; 43249; 45378; C1726; J7120

== ENCOUNTER 2024-10-21 07:10 | Outpatient (CLI) | payer BC, SELFPAY ==
--- OUTSIDE RECORDS SUMMARY | 2024-10-21 07:12 | XMS_ITS | Clinical Summary ---
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 (SNOMED CT) 10/18 Active 10/18 Ila Sykes Disseminated cutaneous histoplasmosis Medications Medication Instructions Start Date Stop Date Generic Name NDC Provider VENLAFAXINE HCL ER 37.5 MG [id number] Take one by mouth daily VENLAFAXINE HCL 34835210552 Francine Benson TADALAFIL 10 MG TABS Take one by mouth daily/PRN TADALAFIL [id number] Francine Benson ALPRAZOLAM 0.5 MG TABS Take by mouth twice a day/PRN ALPRAZOLAM 75339441479 Francine Benson DICLOFENAC SODIUM 75 MG TBEC Take by mouth twice a day DICLOFENAC SODIUM 36872068639 Francine Benson NEXIUM 20 MG CPDR Take by mouth twice a day ESOMEPRAZOLE MAGNESIUM 07382602189 Francine Benson VITAMIN D3 125 MCG (5000 UT) CAPS Take one by mouth daily CHOLECALCIFEROL [id number] Francine Benson Medications Administered No information available. Allergies, Adverse Reactions, Alerts Allergy Name Reaction Description Start Date Severity Statu s Provider PREDNISONE Moderate Active Francine Benson PENICILLIN G POT IN DEXTROSE Moderate Active Francine Benson Results Date Name Value Unit Range Flag Description Office Visit: rm 5-new patie nt ORALTOBACUSE Never Tobacco smoking status CIGARET SMKG yes Tobacco smoking status SMOK STATUS Former smoker Tob acco smoking status MEDS REVIEW Done Documenta tion of current medications (procedure) Plan of Care Type Date Detail Pending order Histoplasmosis U rinary AG Pending order Fungitell, serum (1-3) D-Glucan Assay Pending order Other Procedures No information available. Vital Signs Date Name Value Unit Description BMI (Body Mass Index) 29.29 kg/m2 Bod y Mass Index (Ratio) Body Temperature 97.6 [degF] temperat ure E&M BP Diastolic 76 mm[Hg] blood pressu re, diastolic BP Systolic 121 mm[Hg] blood pressur e, systolic Heart Rate 72 /min pulse rate Height 71 [in_us] height E&M Respiratory Rate 14 /min respirat ory rate E&M Weight Measured 210.0 [lb_av] weight E& M Weight Measured 210.0 [lb_av] weight E& M Immunizations No information available. Advance Directives Directive Description Start Date NO ADVANCED DIRECTIVES ESTABLISHED AT IS TIME
--- OUTSIDE RECORDS SUMMARY | 2024-10-21 07:12 | XMS_ITS | Clinical Summary ---
Author Organization [facility] Address [address] [place] [address] Care Team Providers Care Manager Float Name Role Phone Unavailable Primary Care Provider Unavailabl e Social History Tobacco Use Types Packs/Day Years Used Date Smoking Tobacco: Never Assessed Abuse Screen Answer Date Recorded Unsafe at Home or Work/School Not on file Feels Threatened by Someone? Not on file 11/2022 Does Anyone Keep You from Co ntacting Others or Doint Things Outside the Home? Not on file 01/05/2023 Physical Sign of Abuse Present Not on file 1 Housing Stability Answer Date Recorded Current Living Arrangements Not on file 11/2022 Potentially Unsafe Housing Conditions Not on timmy e 01/05/2023 Family and Community Support Answer Man e Recorded Help with Day-to-Day Activities Not on file 01/05/2023 Lonely or Isolated Not on file 01/05/2023 Employment Answer Date Recorded Do you want help finding or keeping work or a yogesh b? Not on file 01/05/2023 Disabilities Answer Date Recorded Concentrating, Remembering, or Making Decisions Difficulty Not on file 01/05/2023 Doing Errands Independently Difficulty Not on fi le 01/05/2023 Education Answer Date Recorded Help with school or training? Not on file Preferred Language Not on file 01/05/2023 Sex and Gender Information Value Date Recorded Sex Assigned at Not on file Legal Sex Male 1:08 PM EDT Gender Identity Not on file Sexual Orientation Not on file Plan of Treatment Health Maintenance Due Date Last Done Comments ANNUAL PHYSICAL 1969 HEPATITIS C SCREENING 1969 TDAP/TD VACCINES (1 - Tdap) 02/12/1988 COLOGUARD 2014 COLON CANCER SCREENING 5 YEAR SIGMOIDOSCOPY 2014 COLONOSCOPY [address] CANCER SCREENING 2014 CT COLONOGRAPHY 2014 FECAL OCCULT BLOOD TEST 2014 FIT Testing (1 year) 2014 Pneumococcal Vaccine 50+ (1 of 1 - PCV) 2019 ZOSTER VACCINE (1 of 2) 2019 COVID-19 Vaccine (1 - 2023- season) 2023 INFLUENZA VACCINE 12/28/2024
--- NOTE | 2024-10-21 07:14 | US_ITS ---
FINAL REPORT TECHNIQUE: Ultrasound images of the right upper quadrant were obtained, specifically the gallbladder. CLINICAL HISTORY: RUQ PAIN COMPARISON: None FINDINGS: The gallbladder shows no wall thickening, distention or evidence of gallstones. No biliary ductal dilatation is appreciated. No fluid collections are seen. There is fatty infiltration of the liver. Limited portions of the right kidney are unremarkable. Pancreas is largely obscured. IMPRESSION: Fatty liver. Reviewed, Interpreted and Dictated by Rikki Lee MD Transcribed by Tatum Roman Authenticated and [facility]
== END 2024-10-21 23:59 | disposition home or self-care (01) ==
LOC: RAD 07:11
PROVIDERS: PCP Internal Medicine Adolescent Medicine; Visit Provider Nurse Practitioner Family
DX: K76.0 Fatty (change of) liver, not elsewhere classified (principal)
CPT/HCPCS: 76705